=== PATIENT | female | born 1955 | race Caucasian/White ===

== ENCOUNTER 2024-03-28 04:19 | Day surgery (SDC) | payer OTHER ==
[2024-03-26 14:51] VITALS: BMI 29.6
[2024-03-28 09:38] VITALS: TEMP 97.7
[2024-03-28 10:23] VITALS: BP 136/80; PULSE 68; RESP 16
== END 2024-03-28 10:10 | disposition home or self-care (01) ==
LOC: JASU-ENDO 04:19
PROVIDERS: ATTEND Internal Medicine Gastroenterology
PROC: 0DJD8ZZ Inspection of Lower Intestinal Tract, Via Natural or Artificial Opening Endoscopic (ICD-10-PCS; principal; 2024-03-28 09:00)
DX: Z12.11 Encounter for screening for malignant neoplasm of colon (principal); K64.8 Other hemorrhoids; Z86.0100 Personal history of colon polyps, unspecified
CPT/HCPCS: 88305-TC